=== PATIENT | male | born 1985 | race Caucasian/White ===

== ENCOUNTER 2016-09-07 21:40 | Emergency (ER) | payer MEDICAID ==
[~2016-09-07] VITALS: Ht 167.6 cm; Wt 78.9 kg
[2016-09-07 21:45] VITALS: BP 107/58
[2016-09-07] MEDS ORDERED: ACETAMINOPHEN ES 500 MG TABLET ONE (22:11)
[2016-09-07] MEDS ORDERED: ACETAMINOPHEN 325 MG TABLET PO ONE (22:30)
== END 2016-09-07 22:29 | disposition home or self-care (01) ==
LOC: ER 21:44
DX: M54.6 Pain in thoracic spine (principal); M62.830 Muscle spasm of back
CPT/HCPCS: A4606; Z7610

== ENCOUNTER 2017-06-25 19:59 | Emergency (ER) | payer BC, MEDICAID ==
[~2017-06-25] VITALS: Ht 180.3 cm; Wt 81.6 kg
[2017-06-25 21:40] VITALS: BP 115/70
== END 2017-06-25 21:55 | disposition home or self-care (01) ==
LOC: ER 19:59
DX: J06.9 Acute upper respiratory infection, unspecified (principal)
CPT/HCPCS: Z7610

== ENCOUNTER 2018-02-05 19:59 | Emergency (ER) | payer BC, MEDICAID ==
--- NOTE | 2018-02-05 20:20 | NUR ---
PT BIB SELF WITH GIRLFRIEND, COMPLAINING OF CHEST PAIN X 2 DAYS 11/19. PT SAYS IT FEELS LIKE PRESSURE ON THE LEFT SIDE OF CHEST, LUNG SOUNDS CLEAR, RR EVEN UNLABORED, VITAL SIGNS STABLE
[2018-02-05] MEDS ORDERED: IBUPROFEN 600 MG TABLET PO ONE ×2 (20:53→21:00)
[2018-02-05 21:02] LABS: BASOPHILS # (AUTO) 0.1 /CMM (0.0-0.2); BASOPHILS % (AUTO) 1.2 % (0.0-2.0); EOSINOPHILS % (AUTO) 1.8 % (0.0-6.0); HEMATOCRIT 45 % (39-51); HEMOGLOBIN 15.2 g/dL (13.5-17.5); LYMPHOCYTES # (AUTO) 3.1 /CMM (0.8-4.8); LYMPHOCYTES % (AUTO) 37.1 % (20.0-44.0); MEAN CORPUSCULAR HGB CONC 34 g/dl (31.0-36.0); MEAN CORPUSCULAR VOLUME 93 fL (80-96); MONOCYTES # (AUTO) 0.5 /CMM (0.1-1.30); MONOCYTES % (AUTO) 6.3 % (2.0-12.0); NEUTROPHILS # (AUTO) 4.5 /CMM (1.8-8.9); NEUTROPHILS % (AUTO) 53.6 % (43.0-81.0); PLATELET COUNT (AUTO) 235 /CMM (150-450); RDW COEFFICIENT OF VARIATION 12.5 (11.5-15.0); RED BLOOD CELL COUNT(AUTO) 4.86 MIL/uL (4.5-6.0); WHITE BLOOD COUNT (AUTO) 8.3 K/uL (4.3-11.0)
[2018-02-05 21:12] LABS: CARBON DIOXIDE 30 mmol/L (21-32); CHLORIDE 103 mmol/L (98-107); CREATININE 1.3 mg/dL (0.6-1.3); GLUCOSE 93 mg/dL (74-106); POTASSIUM 3.6 mmol/L (3.5-5.1); SODIUM SERUM 139 mmol/L (136-145); UREA NITROGEN, BLOOD 13 mg/dL (7-18)
[2018-02-05 21:16] VITALS: BP 114/47
[2018-02-05 21:18] LABS: ALANINE AMINOTRANSFERASE 32 U/L (12-78); ALBUMIN 4.1 g/dL (3.4-5.0); ALKALINE PHOSPHATASE 65 U/L (46-116); ASPARTATE AMINOTRANSFERASE 18 U/L (15-37); BILIRUBIN,DIRECT 0.1 mg/dL (0.0-0.2); BILIRUBIN,TOTAL 0.6 mg/dL (0.2-1.0); TOTAL PROTEIN, SERUM 7.5 g/dL (6.4-8.2)
[2018-02-05 21:20] LABS: TROPONIN I < 0.017 ng/mL (0.00-0.056)
== END 2018-02-05 23:52 | disposition home or self-care (01) ==
LOC: ER 20:00
DX: R07.89 Other chest pain (principal)
CPT/HCPCS: 36415; 71045-TC; 80048-TC; 80076-TC; 83690-TC; 84484-TC; 85025-TC; 85730-TC; A4606; Z7610

== ENCOUNTER 2018-05-18 19:06 | Emergency (ER) | payer BC, MEDICAID ==
[~2018-05-18] VITALS: Ht 172.7 cm; Wt 80.3 kg
[2018-05-18 19:19] VITALS: BP 108/64
--- NOTE | 2018-05-18 19:19 | NUR ---
PT TRIAGED IN TRIAGE ROOM, EKG COMPLETED BY EMT IN TRIAGE ROOM, GIVEN TO MD FOR REVIEW. PT RETURNED TO , PENDING OPEN BED.
--- NOTE | 2018-05-18 19:48 | NUR ---
CALLED IN WR, NO RESPONSE
--- NOTE | 2018-05-18 19:55 | NUR ---
CALLED IN WR, NO RESPONSE
--- NOTE | 2018-05-18 20:10 | NUR ---
CALLED IN WR, NO RESPONSE
== END 2018-05-18 20:27 | disposition left against medical advice (07) ==
LOC: ER 19:09
DX: Z53.21 Procedure and treatment not carried out due to patient leaving prior to being seen by health care provider (principal); R07.9 Chest pain, unspecified; R07.81 Pleurodynia; M25.512 Pain in left shoulder
CPT/HCPCS: 93005; A4606; Z7610

== ENCOUNTER 2019-03-15 18:01 | Emergency (ER) | payer BC, MEDICAID ==
[~2019-03-15] VITALS: Ht 170.2 cm; Wt 80.3 kg
--- NOTE | 2019-03-15 18:09 | NUR ---
BIBWIFE, C/O CHEST PRESSURE, RADIATING TO BACK, PAIN ON INSPIRATION, 8/10 PS, DIARRHEA x 2 DAYS. 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
--- NOTE | 2019-03-15 18:24 | NUR ---
DR DRISCOLL AT BEDSIDE
[2019-03-15 18:26] LABS: BASOPHILS # (AUTO) 0.1 /CMM (0.0-0.2); BASOPHILS % (AUTO) 0.9 % (0.0-2.0); EOSINOPHILS % (AUTO) 0.8 % (0.0-6.0); HEMATOCRIT 47 % (39-51); HEMOGLOBIN 15.8 g/dL (13.5-17.5); LYMPHOCYTES # (AUTO) 2.2 /CMM (0.8-4.8); LYMPHOCYTES % (AUTO) 29.7 % (20.0-44.0); MEAN CORPUSCULAR HGB CONC 34 g/dl (31.0-36.0); MEAN CORPUSCULAR VOLUME 95 fL (80-96); MONOCYTES # (AUTO) 0.5 /CMM (0.1-1.30); MONOCYTES % (AUTO) 6.8 % (2.0-12.0); NEUTROPHILS # (AUTO) 4.6 /CMM (1.8-8.9); NEUTROPHILS % (AUTO) 61.8 % (43.0-81.0); PLATELET COUNT (AUTO) 224 /CMM (150-450); RED BLOOD CELL COUNT(AUTO) 4.88 MIL/uL (4.5-6.0); WHITE BLOOD COUNT (AUTO) 7.5 K/uL (4.3-11.0)
[2019-03-15] MEDS ORDERED: diphenhydrAMINE HCL 50 MG/ML VIAL IV ONE (18:30)
[2019-03-15] MEDS ORDERED: KETOROLAC TROMETHAMINE INJ 30 MG/ML VIAL IV ONE (18:30)
[2019-03-15] MEDS ORDERED: METOCLOPRAMIDE HCL 10 MG/2 ML VIAL IV ONE (18:30)
[2019-03-15 18:36] LABS: CARBON DIOXIDE 26 mmol/L (21-32); CHLORIDE 105 mmol/L (98-107); CREATININE 0.9 mg/dL (0.6-1.3); GLUCOSE 95 mg/dL (74-106); POTASSIUM 3.6 mmol/L (3.5-5.1); SODIUM SERUM 139 mmol/L (136-145); UREA NITROGEN, BLOOD 14 mg/dL (7-18)
[2019-03-15] MEDS ORDERED: KETOROLAC TROMETHAMINE INJ 30 MG/ML VIAL ONE (18:37)
[2019-03-15] MEDS ORDERED: diphenhydrAMINE HCL 50 MG/ML VIAL ONE (18:37)
[2019-03-15] MEDS ORDERED: METOCLOPRAMIDE HCL 10 MG/2 ML VIAL ONE (18:38)
--- NOTE | 2019-03-15 19:19 | NUR ---
REPORT GIVEN TO ANGELO MCGILL FOR STEPHANIE
--- NOTE | 2019-03-15 19:34 | NUR ---
IV removed. Catheter intact and site benign. Pressure and 4x4 applied to site. No bleeding noted.Patient discharged to home in stable condition. Written and verbal after care instructions given. Patient verbalizes understanding of instruction.
[2019-03-15 19:35] VITALS: BP 109/62
== END 2019-03-15 19:35 | disposition home or self-care (01) ==
LOC: ER 18:09
DX: R07.89 Other chest pain (principal); F17.200 Nicotine dependence, unspecified, uncomplicated; Z60.2 Problems related to living alone
CPT/HCPCS: 36415; 71045; 80048; 84484; 85025; 93005; 96374; 96375; 99284; J1200; J1885; J2765